=== PATIENT | male | born 1950 | race Caucasian/White ===

== ENCOUNTER 2021-08-09 16:49 | Inpatient (IN) | payer BC ==
[2021-08-09 20:20] LABS: BASO % 0.5 % (0-2.0); EOS % 1.9 % (0-4.5); HEMATOCRIT 39.1 % (35.4-49); HEMOGLOBIN 13.1 GM/dL (11.7-16.9); LYMPH % 26.2 % (8-40); MCH 31.5 pg (25.7-33.7); MCHC 33.6 g/dl (32.0-35.9); MEAN PLT VOLUME 7.8 fl (7.5-11.1); MONO % 8.1 % (3.8-10.2); NEUT % 63.3 % (42.8-82.8); PLATELET COUNT 173 10^3/uL (134-434); RBC 4.17 M/mm3 (4.00-5.60); RDW 13.7 % (11.9-15.9); WHITE BLOOD COUNT 5.4 K/mm3 (4.0-10.0)
[2021-08-09 20:37] LABS: CHLORIDE 108 mmol/L (98-107); SODIUM 141 mmol/L (136-145)
[2021-08-09 20:38] LABS: ALBUMIN 3.8 g/dl (3.4-5.0); ANION GAP 7 MMOL/L (8-16); BLOOD UREA NITROGEN 18.3 mg/dL (7-18); CO2 27 mmol/L (21-32); GLUCOSE,RANDOM 98 mg/dL (74-106)
[2021-08-09 20:41] LABS: CREATININE 0.9 mg/dL (0.55-1.3); SGOT/AST 52 U/L (15-37); SGPT/ALT 42 U/L (13-61)
[2021-08-09 20:43] LABS: ALK PHOS 76 U/L (45-117); BILIRUBIN,TOTAL 0.4 mg/dL (0.2-1); TOT PROT 7.3 g/dl (6.4-8.2)
[2021-08-09] MEDS ORDERED: PHENYTOIN NA EXTENDED 100 MG CAPSULE (FP) PO ONE (22:34)
[2021-08-09] MEDS ORDERED: PHENYTOIN NA EXTENDED 100 MG CAPSULE (FP) ONE (22:42)
[2021-08-09] MEDS ORDERED: LORazepam 2 MG TABLET PO ONE (22:43)
[2021-08-09] MEDS ORDERED: LORazepam 1 MG TABLET ONE (22:43)
[2021-08-09] MEDS ORDERED: THIAMINE HCL 200 MG/2 ML VIAL IVPB ONE (22:56)
[2021-08-09] MEDS ORDERED: THIAMINE HCL 200 MG/2 ML VIAL ONE (23:05)
[2021-08-10] MEDS ORDERED: PHENYTOIN SODIUM 100 MG/2 ML VIAL IVPB ONE (01:37)
[2021-08-10] MEDS ORDERED: PHENYTOIN SODIUM INJECTION 500 MG in SODIUM CHLORIDE 100 ML IVPB ONE (01:45)
[2021-08-10] MEDS ORDERED: LORazepam 2 MG/ML SDV VIAL IVPUSH ONE (02:41)
[2021-08-10] MEDS ORDERED: MELATONIN 5 MG TABLETS PO ONE (02:43)
[2021-08-10 03:16] LABS: EPI CELLS 6 /uL (0-25.1); HYALINE CASTS 2 /uL (0-3.1); PH,URINE 5.5 (5.0-8.0); URINE APPEARANCE CLEAR; URINE BACTERIA 5 /uL (0-1359); URINE BILIRUBIN NEGATIVE (NEGATIVE); URINE COLOR YELLOW; URINE GLUCOSE (UA) NEGATIVE (NEGATIVE); URINE KETONE TRACE (NEGATIVE); URINE LEUK ESTERASE TRACE (NEGATIVE); URINE NITRITE NEGATIVE (NEGATIVE); URINE PROTEIN 1+ (NEGATIVE); URINE RBC 22 /uL (0-23.9); URINE UROBILINOGEN 0.2 mg/dL (0.2-1.0); URINE WBC 47 /uL (0-25.8)
[2021-08-10 03:22] LABS: OPIATES, URI NEGATIVE (NEGATIVE); PHENCYCLIDINE,URINE NEGATIVE (NEGATIVE); URINE BENZODIAZEPINES NEGATIVE (NEGATIVE)
[2021-08-10] MEDS ORDERED: MELATONIN 5 MG TABLETS ONE (03:30)
[2021-08-10 03:41] LABS: URINE AMPHETAMINES NEGATIVE (NEGATIVE)
[2021-08-10 03:44] LABS: URINE BARBITURATES POSITIVE (NEGATIVE)
[2021-08-10 03:49] LABS: METHADONE, UR NEGATIVE (NEGATIVE)
[2021-08-10] MEDS ORDERED: MINERAL OIL/PETROLAT/WATER TOPICAL CREAM 454 GM JAR TP PRN (04:29)
[2021-08-10 05:00] VITALS: BMI 33.4
[2021-08-10] MEDS: PHENYTOIN NA EXTENDED 100 MG CAPSULE (FP) PO SCH ×4 (06:39→21:50)
[2021-08-10 08:36] LABS: BASO % 0.5 % (0-2.0); EOS % 1.8 % (0-4.5); HEMATOCRIT 37.4 % (35.4-49); HEMOGLOBIN 12.8 GM/dL (11.7-16.9); LYMPH % 27.2 % (8-40); MCH 31.8 pg (25.7-33.7); MCHC 34.1 g/dl (32.0-35.9); MEAN CELL VOLUME 93.1 fl (80-96); MEAN PLT VOLUME 8.1 fl (7.5-11.1); MONO % 8.3 % (3.8-10.2); NEUT % 62.2 % (42.8-82.8); PLATELET COUNT 173 10^3/uL (134-434); RBC 4.02 M/mm3 (4.00-5.60); RDW 13.5 % (11.9-15.9); WHITE BLOOD COUNT 5.4 K/mm3 (4.0-10.0)
[2021-08-10 09:01] LABS: ALBUMIN 3.3 g/dl (3.4-5.0); BLOOD UREA NITROGEN 18.1 mg/dL (7-18); CALCIUM 8.5 mg/dL (8.5-10.1)
[2021-08-10 09:05] LABS: CREATININE 0.9 mg/dL (0.55-1.3); PHOSPHOROUS 3.7 mg/dL (2.5-4.9)
[2021-08-10 09:06] LABS: BILIRUBIN,TOTAL 0.4 mg/dL (0.2-1); TOT PROT 6.9 g/dl (6.4-8.2)
[2021-08-10] MEDS: ENOXAPARIN NA (PORCINE) 40 MG/0.4 ML DISP.SYRIN SQ SCH (10:03)
[2021-08-10 10:38] LABS: COCAINE, UR NEGATIVE (NEGATIVE)
[2021-08-10] MEDS: GABAPENTIN 400 MG CAPSULE PO SCH ×2 (11:45→21:51)
[2021-08-10] MEDS: PRIMIDONE 250 MG TABLET PO SCH ×2 (12:16→21:52)
[2021-08-10] MEDS ORDERED: PT OWN MED DRAWER 7, Y5N ONE (21:33)
[2021-08-10] MEDS: PHENYTOIN 50 MG TAB.CHEW PO SCH (21:50)
[2021-08-10] MEDS ORDERED: GABAPENTIN 400 MG CAPSULE PO SCH (22:00)
[2021-08-11] MEDS: GABAPENTIN 400 MG CAPSULE PO SCH ×2 (09:34→22:38)
[2021-08-11] MEDS: PHENYTOIN NA EXTENDED 100 MG CAPSULE (FP) PO SCH ×2 (09:34→22:37)
[2021-08-11] MEDS: ENOXAPARIN NA (PORCINE) 40 MG/0.4 ML DISP.SYRIN SQ SCH (09:35)
[2021-08-11] MEDS: PRIMIDONE 250 MG TABLET PO SCH ×2 (11:21→22:38)
[2021-08-11] MEDS ORDERED: PT OWN MED DRAWER 7, Y5N ONE (21:15)
[2021-08-11] MEDS: MELATONIN 5 MG TABLETS PO PRN (22:36)
[2021-08-11] MEDS: PHENYTOIN 50 MG TAB.CHEW PO SCH (22:39)
[2021-08-12] MEDS ORDERED: PT OWN MED DRAWER 7, Y5N ONE ×2 (10:43→20:16)
[2021-08-12] MEDS: PHENYTOIN NA EXTENDED 100 MG CAPSULE (FP) PO SCH ×2 (10:47→21:41)
[2021-08-12] MEDS: GABAPENTIN 400 MG CAPSULE PO SCH ×2 (10:47→21:43)
[2021-08-12] MEDS: PRIMIDONE 250 MG TABLET PO SCH ×2 (10:48→21:43)
[2021-08-12] MEDS: ENOXAPARIN NA (PORCINE) 40 MG/0.4 ML DISP.SYRIN SQ SCH (10:48)
[2021-08-12] MEDS ORDERED: LORazepam 2 MG/ML SDV VIAL IVPUSH PRN (18:32)
[2021-08-12] MEDS: PHENYTOIN 50 MG TAB.CHEW PO SCH (21:42)
[2021-08-12] MEDS: MELATONIN 5 MG TABLETS PO PRN (23:00)
[2021-08-13 06:30] VITALS: TEMP 98.1
[2021-08-13] MEDS ORDERED: PT OWN MED DRAWER 7, Y5N ONE (09:18)
[2021-08-13] MEDS: ENOXAPARIN NA (PORCINE) 40 MG/0.4 ML DISP.SYRIN SQ SCH (10:03)
[2021-08-13] MEDS: GABAPENTIN 400 MG CAPSULE PO SCH (10:03)
[2021-08-13] MEDS: PRIMIDONE 250 MG TABLET PO SCH (10:05)
[2021-08-13] MEDS: PHENYTOIN NA EXTENDED 100 MG CAPSULE (FP) PO SCH (10:06)
[2021-08-13 15:21] VITALS: BP 133/66; PULSE 55
== END 2021-08-13 16:30 | disposition home or self-care (01) | DRG 101 ==
LOC: JER 16:49 → OBSVTOIN 22:36 → JERBED 22:36 → J4W 08-10 04:12
PROVIDERS: ADMIT Internal Medicine
DX: R56.9 Unspecified convulsions (principal); R55 Syncope and collapse; E66.9 Obesity, unspecified; Z68.33 Body mass index [BMI] 33.0-33.9, adult; I10 Essential (primary) hypertension; E78.5 Hyperlipidemia, unspecified
CPT/HCPCS: 36415; 70450-TC; 80053; 80185; 80186; 80307; 81003; 82962; 83735; 84100; 84443; 84484; 85025; 93005; 93010; 93306-TC; 93880-TC; 97116-GP; 97162-GP; 99285-25; C9803; U0003; U0005